=== PATIENT | female | born 1955 | race Caucasian/White ===

== ENCOUNTER → 2016-10-22 | Outpatient (CLI) | payer BC | LOC: MC.RAD 16:40 | DX: Z12.31 Encounter for screening mammogram for malignant neoplasm of breast (principal); Z80.3 Family history of malignant neoplasm of breast ==

== ENCOUNTER → 2017-10-23 | Outpatient (CLI) | payer BC | LOC: MC.RAD 16:20 | DX: Z12.31 Encounter for screening mammogram for malignant neoplasm of breast (principal) ==

== ENCOUNTER → 2018-11-10 | Outpatient (CLI) | payer BC | LOC: MC.RAD 15:15 | DX: Z12.31 Encounter for screening mammogram for malignant neoplasm of breast (principal) ==

== ENCOUNTER → 2019-12-03 | Outpatient (CLI) | payer BC | LOC: MC.RAD 11:40 | DX: Z12.31 Encounter for screening mammogram for malignant neoplasm of breast (principal) ==

== ENCOUNTER → 2020-12-07 | Outpatient (CLI) | payer OTHER | LOC: MC.RAD | DX: Z12.31 Encounter for screening mammogram for malignant neoplasm of breast (principal) ==

== ENCOUNTER 2020-12-19 15:33 | Outpatient (RCR) | payer OTHER | END 2021-03-09 15:45 | LOC: WSPT 15:33 | DX: S29.012A Strain of muscle and tendon of back wall of thorax, initial encounter (principal) ==

== ENCOUNTER → 2022-01-15 | Outpatient (CLI) | payer BC | LOC: MC.RAD 16:38 | DX: Z12.31 Encounter for screening mammogram for malignant neoplasm of breast (principal) ==